=== PATIENT | male | born 1990 | race Caucasian/White ===

== ENCOUNTER 2017-07-20 12:35 | Emergency (ER) | payer SELFPAY ==
[~2017-07-20] VITALS: Ht 185.4 cm; Wt 112.3 kg
[2017-07-20] MEDS ORDERED: IOHEXOL 350 MG/ML 10 ML VIAL (for RAD DIAG) IVCONTRAST ONE (12:36)
[2017-07-20 12:55] VITALS: BP 185/96; PULSE 65; RESP 20; TEMP 98.4; O2SAT 100
[2017-07-20 13:07] VITALS: BP 138/78; PULSE 69; RESP 18; O2SAT 100
--- NOTE | 2017-07-20 13:11 | PD ---
HPI Chief Complaint: Abdominal Pain Time Seen by Provider: 13:03 Travel History International Travel<30 days: No Contact w/Intl Traveler<30days: No Traveled to known affect area: No History of Present Illness HPI Patient has had 2 days history of lower quadrant abdominal pain, described as a sharp/stabbing pain, intermittently occurring, nonradiating, 6 out of 10, associated with nausea. Patient denies any alleviating or aggravating factors. Patient denies any associated factors such as fever, rash, headache, neck pain , chest pain, back pain, flank pain, dysuria/urgency/frequency/urinary discoloration. Patient denies any known drug allergies Patient denies any past medical or significant surgical history. PFSH Social History Tobacco Use: No Allergies-Medications (Allergen,Severity, Reaction): Coded Allergies: No Known Allergies (Verified Allergy, Unknown, 07/20/17) Reported Meds & Prescriptions Reported Meds & Active Scripts Active Ultram (Tramadol HCl) 50 Mg Tab 50 Mg PO Q8H PRN Zofran Odt (Ondansetron Odt) 4 Mg Tab 4 Mg SL Q8HR PRN Flomax (Tamsulosin HCl) 0.4 Mg Cap 0.4 Mg PO DAILY Ketorolac (Ketorolac Tromethamine) 10 Mg Tab 10 Mg PO TID PRN Review of Systems General / Constitutional: No: Fever Eyes: No: Visual changes HENT: No: Headaches Cardiovascular: No: Chest Pain or Discomfort Respiratory: No: Shortness of Breath Gastrointestinal: Positive: Abdominal Pain Genitourinary: No: Dysuria Musculoskeletal: No: Pain Skin: No Rash Neurologic: No: Weakness Psychiatric: No: Depression Endocrine: No: Polydipsia Hematologic/Lymphatic: No: Easy Bruising Physical Exam Narrative GENERAL: SKIN: Warm and dry. HEAD: Atraumatic. Normocephalic. EYES: Pupils equal and round. No scleral icterus. No injection or drainage. ENT: No nasal bleeding or discharge. Mucous membranes pink and moist. NECK: Trachea midline. No JVD. CARDIOVASCULAR: Regular rate and rhythm. RESPIRATORY: No accessory muscle use. Clear to auscultation. Breath sounds equal bilaterally. GASTROINTESTINAL: Abdomen soft, mildly present tenderness to percussion of the right lower quadrant, positive Rovsing sign, negative obturator/psoas sign... nondistended. MUSCULOSKELETAL: Extremities without clubbing, cyanosis, or edema. No obvious deformities. NEUROLOGICAL: Awake and alert. No obvious cranial nerve deficits. Motor grossly within normal limits. Five out of 5 muscle strength in the arms and legs. Normal speech. PSYCHIATRIC: Appropriate mood and affect; insight and judgment normal. Data Data Last Documented VS Vital Signs Date Time Temp Pulse Resp B/P (MAP) Pulse Ox O2 Delivery O2 Flow Rate FiO2 07/20/17 13:31 69 18 100 Room Air 07/20/17 12:55 98.4 Orders Orders Complete Blood Count With Diff (07/20/17 13:20) Comprehensive Metabolic Panel (07/20/17 13:20) Lipase (07/20/17 13:20) Urinalysis - C+S If Indicated (07/20/17 13:20) Ct Abd/Pel W Iv Contrast(Rout) (07/20/17 13:20) Iv Access Insert/Monitor (07/20/17 13:20) Ecg Monitoring (07/20/17 13:20) Oximetry (07/20/17 13:20) NPO (07/20/17 13:20) Morphine Inj (Morphine Inj) (07/20/17 13:30) Ondansetron Inj (Zofran Inj) (07/20/17 13:30) Sodium Chlor 0.9% 1000 Ml Inj (Ns 1000 M (07/20/17 13:20) Sodium Chloride 0.9% Flush (Ns Flush) (07/20/17 13:30) Iohexol 350 Inj (Omnipaque 350 Inj) (07/20/17 12:36) Ketorolac Inj (Toradol Inj) (07/20/17 15:15) Labs Laboratory Tests Test 07/20/17 13:48 07/20/17 14:10 White Blood Count 18.5 TH/MM3 Red Blood Count 5.49 MIL/MM3 Hemoglobin 16.5 GM/DL Hematocrit 47.8 % Mean Corpuscular Volume 87.2 FL Mean Corpuscular Hemoglobin 30.1 PG Mean Corpuscular Hemoglobin Concent 34.6 % Red Cell Distribution Width 12.6 % Platelet Count 338 TH/MM3 Mean Platelet Volume 8.4 FL Neutrophils (%) (Auto) 91.6 % Lymphocytes (%) (Auto) 5.4 % Monocytes (%) (Auto) 2.8 % Eosinophils (%) (Auto) 0.0 % Basophils (%) (Auto) 0.2 % Neutrophils # (Auto) 16.9 TH/MM3 Lymphocytes # (Auto) 1.0 TH/MM3 Monocytes # (Auto) 0.5 TH/MM3 Eosinophils # (Auto) 0.0 TH/MM3 Basophils # (Auto) 0.0 TH/MM3 CBC Comment DIFF FINAL Differential Comment Blood Urea Nitrogen 18 MG/DL Creatinine 1.20 MG/DL Random Glucose 101 MG/DL Total Protein 9.0 GM/DL Albumin 4.6 GM/DL Calcium Level 9.6 MG/DL Alkaline Phosphatase 83 U/L Aspartate Amino Transf (AST/SGOT) 32 U/L Alanine Aminotransferase (ALT/SGPT) 31 U/L Total Bilirubin 0.6 MG/DL Sodium Level 140 MEQ/L Potassium Level 3.9 MEQ/L Chloride Level 106 MEQ/L Carbon Dioxide Level 25.1 MEQ/L Anion Gap 9 MEQ/L Estimat Glomerular Filtration Rate 74 ML/MIN Lipase 53 U/L Urine Color YELLOW Urine Turbidity CLEAR Urine pH 8.5 Urine Specific [place] 1.032 Urine Protein 30 mg/dL Urine Glucose (UA) NEG mg/dL Urine Ketones 80 mg/dL Urine Occult Blood MOD Urine Nitrite NEG Urine Bilirubin NEG Urine Urobilinogen 2.0 MG/DL Urine Leukocyte Esterase NEG Urine RBC /hpf Urine WBC 1 /hpf Urine Mucus FEW /lpf Microscopic Urinalysis Comment CULT NOT INDICATED MDM Medical Decision Making Medical Screen Exam Complete: Yes Emergency Medical Condition: Yes Medical Record Reviewed: Yes Interpretation(s) Differential Diagnosis Colitis versus diverticulitis versus appendicitis Narrative Course CBC shows leukocytosis of 18,000, with a left shift and 91.6% neutrophilia, no anemia and normal platelet count Electrolytes are all within normal limits, normal kidney/liver/pancreatic functions UA is negative for any UTI CT abdomen and pelvis shows a 5 mm calculus in the mid to distal right ureter which is causing moderate hydronephrosis no other significant abnormality per radiologist read. Diagnosis Primary Impression: Right ureterolithiasis Patient Instructions: General Instructions, Kidney Stones (ED) Scripts Tramadol (Ultram) 50 Mg Tab 50 MG PO Q8H Y for PAIN SCALE 6 TO 10, #12 TAB 0 Refills Prov: Leonardo Boyce MD 07/20/17 Ondansetron Odt (Zofran Odt) 4 Mg Tab 4 MG SL Q8HR Y for Nausea/Vomiting, #15 TAB 0 Refills Prov: Leonardo Boyce MD 07/20/17 Tamsulosin (Flomax) 0.4 Mg Cap 0.4 MG PO DAILY for Manage Prostate Problems, #5 CAP 0 Refills Prov: Leonardo Boyce MD 07/20/17 Ketorolac (Ketorolac) 10 Mg Tab 10 MG PO TID Y for Pain Management, #21 TAB 0 Refills Prov: Leonardo Boyce MD 07/20/17 Disposition: 01 DISCHARGE HOME Condition: Stable Leonardo Boyce MD Jul 20, 2017 13:11
[2017-07-20] MEDS ORDERED: SODIUM CHLOR 0.9% 1000 ML INJ 1,000 ML IV SCH (13:20)
[2017-07-20] MEDS ORDERED: ONDANSETRON HCL 4 MG/2 ML VIAL IVP ONE (13:30)
[2017-07-20] MEDS ORDERED: MORPHINE SULFATE 4 MG/ML INJ IV PUSH ONE (13:30)
[2017-07-20] MEDS ORDERED: SODIUM CHLORIDE 0.9% FLUSH 10 ML FLUSH IV FLUSH PRN (13:30)
[2017-07-20 13:31] VITALS: PULSE 69; RESP 18; O2SAT 100
[2017-07-20 14:04] LABS: AUTOMATED NEUTROPHIL # 16.9 TH/MM3 (1.8-7.7); BASOPHIL % 0.2 % (0.0-2.0); HEMATOCRIT 47.8 % (39.0-51.0); HEMOGLOBIN 16.5 GM/DL (13.0-17.0); LYMPH % 5.4 % (9.0-44.0); MEAN CELL VOLUME 87.2 FL (80.0-100.0); MEAN CORPUSCULAR HEMOGLOBIN 30.1 PG (27.0-34.0); MEAN CORPUSCULAR HGB CONC 34.6 % (32.0-36.0); MEAN PLATELET VOLUME 8.4 FL (7.0-11.0); MONO % 2.8 % (0.0-8.0); MONOCYTE # 0.5 TH/MM3 (0-0.9); NEUT % 91.6 % (16.0-70.0); PLATELET COUNT 338 TH/MM3 (150-450); RED BLOOD COUNT 5.49 MIL/MM3 (4.50-5.90); RED CELL DISTRIBUTION WIDTH 12.6 % (11.6-17.2); WHITE BLOOD COUNT 18.5 TH/MM3 (4.0-11.0)
[2017-07-20 14:29] LABS: ALKALINE PHOSPHATASE 83 U/L (45-117); ALT (GPT) 31 U/L (12-78); TOTAL BILIRUBIN ADULT 0.6 MG/DL (0.2-1.0)
[2017-07-20 14:34] LABS: ALBUMIN 4.6 GM/DL (3.4-5.0); AST (GOT) 32 U/L (15-37); BICARBONATE 25.1 MEQ/L (21.0-32.0); BLOOD UREA NITROGEN 18 MG/DL (7-18); CALCIUM 9.6 MG/DL (8.5-10.1); CHLORIDE 106 MEQ/L (98-107); GLOMERULAR FILTRATION RATE 74 ML/MIN (>89); GLUCOSE,RANDOM 101 MG/DL (74-106); SODIUM (NA) 140 MEQ/L (136-145)
--- NOTE | 2017-07-20 14:52 | RADRPT ---
EXAM DATE/TIME: 07/20/2017 14:26 [facility] COMPARISON: No previous studies available for comparison. INDICATIONS : Right lower quadrant pain with nausea and vomiting. IV CONTRAST: 80 cc Omnipaque 350 (iohexol) IV ORAL CONTRAST: No oral contrast ingested. RADIATION DOSE: 16.83 CTDIvol (mGy) MEDICAL HISTORY : None SURGICAL HISTORY : None. ENCOUNTER: Initial ACUITY: 3 days PAIN SCALE: 5/10 LOCATION: Right lower quadrant TECHNIQUE: Volumetric scanning of the abdomen and pelvis was performed. Using automated exposure control and ad justment of the mA and/or kV according to patient size, radiation dose was kept as low as reasonably achievable to obtain optimal diagnostic quality images. DICOM format image data is available electro nically for review and comparison. FINDINGS: LOWER LUNGS: The visualized lower lungs are clear. LIVER: Homogeneous density without lesion. There is no dilation of the biliary tree. No calcified gallston es. SPLEEN: Normal size without lesion. PANCREAS: Within normal limits. KIDNEYS: The right renal collecting system and right ureter are moderately distended. 5 mm calculus is identif ied in the distal right ureter within the mid pelvis. The left kidney and collecting system are unrem arkable. ADRENAL GLANDS: Within normal limits. VASCULAR: There is no aortic aneurysm. BOWEL/MESENTERY: The stomach, small bowel, and colon demonstrate no acute abnormality. There is no free intraperitone al air or fluid. ABDOMINAL WALL: Within normal limits. RETROPERITONEUM: There is no lymphadenopathy. BLADDER: No wall thickening or mass. REPRODUCTIVE: Within normal limits. INGUINAL: There is no lymphadenopathy or hernia. MUSCULOSKELETAL: Within normal limits for patient age. CONCLUSION: 1. 5 mm calculus in the mid to distal right ureter causing moderate hydronephrosis. 2. No other significant abnormality. Wei Stewart MD on July 20, 2017 at 14:46 Board Certified Radiologist. This report was verified electronically.
[2017-07-20 15:00] LABS: BILIRUBIN, URINE NEG (NEG); BLOOD, URINE MOD (NEG); GLUCOSE,URINE NEG (NEG); KETONE, URINE 80 mg/dL (NEG); MUCUS URINE FEW /lpf (OCC); NITRITE,URINE NEG (NEG); PH, URINE 8.5 (5.0-8.5); URINE COLOR YELLOW (YELLW/STRAW); URINE LEUKOCYTE ESTERASE NEG (NEG)
[2017-07-20] MEDS ORDERED: TRAM50 PO (15:11)
[2017-07-20] MEDS ORDERED: ZOFR4TAB3 SL (15:11)
[2017-07-20] MEDS ORDERED: KETO10 PO (15:11)
[2017-07-20] MEDS ORDERED: TAMS5CAP PO (15:11)
[2017-07-20] MEDS ORDERED: KETOROLAC TROMETHAMINE 30 MG/ML (IVP) VIAL IV PUSH ONE (15:15)
[2017-07-20 15:30] VITALS: BP 124/64; PULSE 65; RESP 18; O2SAT 99
== END 2017-07-20 16:05 | disposition home or self-care (01) ==
LOC: NEPC 12:35
DX: N13.2 Hydronephrosis with renal and ureteral calculous obstruction (principal)
CPT/HCPCS: 74177; 80053; 81001; 83690; 85025; 96361; 96374; 96375; 99284; J1885; J2270; J2405; J7030; Q9967